=== PATIENT | female | born 1980 | race Caucasian/White ===

== ENCOUNTER 2024-02-18 15:56 | Emergency (ER) | payer BC ==
[2024-02-18] MEDS ORDERED: Ketorolac Tromethamine 30 MG (1 mL) VIAL ONE (16:22)
[2024-02-18] MEDS ORDERED: Lidocaine 4% Patch TD SCH (16:30)
[2024-02-19] MEDS ORDERED: Transdermal Patch Removal TOP SCH (04:30)
== END 2024-02-18 16:41 | disposition home or self-care (01) ==
LOC: CSHERS 15:56
DX: S39.012A Strain of muscle, fascia and tendon of lower back, initial encounter (principal); I10 Essential (primary) hypertension; X58.XXXA Exposure to other specified factors, initial encounter
CPT/HCPCS: 96372; 99283; J1885

== ENCOUNTER 2024-02-28 10:35 | Day surgery (SDC) | payer BC ==
[2024-02-22 13:53] VITALS: BMI 25.2
[2024-02-28] MEDS ORDERED: PROPOFOL 40 ML ONE (11:29)
[2024-02-28] MEDS ORDERED: Lidocaine 1% PF 5 ML VIAL ONE (11:29)
[2024-02-28] MEDS ORDERED: Midazolam HCl 2 mg/2 ml Vial ONE (11:29)
[2024-02-28] MEDS ORDERED: Glycopyrrolate 0.2 MG/ML 5 ML SYRINGE ONE (11:34)
[2024-02-28] MEDS ORDERED: PROPOFOL 20 ML ONE ×2 (12:01→12:14)
== END 2024-02-28 13:10 | disposition home or self-care (01) ==
LOC: CSHSDC 10:35
PROVIDERS: ATTEND Surgery
PROC: 0DJD8ZZ Inspection of Lower Intestinal Tract, Via Natural or Artificial Opening Endoscopic (ICD-10-PCS; principal; 2024-02-28)
PROC: 0DJ08ZZ Inspection of Upper Intestinal Tract, Via Natural or Artificial Opening Endoscopic (ICD-10-PCS; principal; 2024-02-28)
DX: K28.9 Gastrojejunal ulcer, unspecified as acute or chronic, without hemorrhage or perforation (principal); D64.9 Anemia, unspecified; Q43.8 Other specified congenital malformations of intestine; K21.9 Gastro-esophageal reflux disease without esophagitis; I10 Essential (primary) hypertension; F41.9 Anxiety disorder, unspecified; Z98.84 Bariatric surgery status; Z88.8 Allergy status to other drugs, medicaments and biological substances; Z79.899 Other long term (current) drug therapy
CPT/HCPCS: J2250; J2704